=== PATIENT | female | born 1975 | race Hispanic/Latino ===

== ENCOUNTER 2021-09-08 14:21 | Outpatient (CLI) | payer OTHER | END 2021-09-08 14:22 | disposition home or self-care (01) | LOC: CSHULT 14:21 | PROVIDERS: ATTEND Nurse Practitioner Family | DX: R10.32 Left lower quadrant pain (principal); R93.89 Abnormal findings on diagnostic imaging of other specified body structures | CPT/HCPCS: 76856 ==

== ENCOUNTER 2021-10-06 15:15 | Outpatient (CLI) | payer OTHER | END 2021-10-06 15:16 | disposition home or self-care (01) | LOC: CSHULT 15:15 | PROVIDERS: ATTEND Family Medicine | DX: L98.9 Disorder of the skin and subcutaneous tissue, unspecified (principal); R22.41 Localized swelling, mass and lump, right lower limb | CPT/HCPCS: 76999 ==